=== PATIENT | male | born 1945 | race Caucasian/White ===

== ENCOUNTER → 2021-03-07 10:30 | Outpatient (BNVA) | payer OTHER, SELFPAY | PROVIDERS: Family Provider Nurse Practitioner Family; PCP Nurse Practitioner Family; Visit Provider Internal Medicine Cardiovascular Disease | DX: I35.0 Nonrheumatic aortic (valve) stenosis (principal); Z79.899 Other long term (current) drug therapy | CPT/HCPCS: 80048; 85025; 85610; 87635 ==

== ENCOUNTER 2021-03-13 11:24 | Observation (INO) | payer MEDICARE, OTHER, SELFPAY ==
[2021-03-13] VITALS (25 sets, daily range): BP systolic 86–134; BP diastolic 44–71; PULSE 83–101; RESP 16–27; TEMP 36.6; O2SAT 86–94; BMI 39.4
--- NOTE | 2021-03-13 07:30 | XACV_ITS ---
Ht: 178 cm Wt: 125 kg BSA: 2.54 m2 Gender: Male : 1945 Any Known Allergies: No known allergies Exam Priority: Routine Procedure(s): Procedure Description: Diagnostic procedure Procedure Description: Left Heart Catheterization Procedure Description: Right Heart Catheterization Procedure Description: Left ventriculography Procedure Description: O2 saturation Procedure Description: Coronary Angiography Flori CHILDS; Diagnostic Cath Status: Elective Diagnostic Findings * No disease noted in the Left Main, Left Anterior Descending, Right, or Circumflex coronary arteries. * Coronary angiography shows right dominance. Conclusions 1. No disease noted in the Left Main, Left Anterior Descending, Right, or Circumflex coronary arteries. 2. Pulmonary capillary wedge pressure 28 mmHgPA mean 73 mmHgRV 115/7 mmHgRA 14 mmHgNo reversibility was noted in the PA mean in the reversibility studySignificant step-up noted at the level of PAHigh cardiac output and cardiac index notedFurther assessment with cardiac CT or MRI rule out shunt. Recommendations * Continue current medical management and risk factor modification. * Severe * pulmonary hypertension * mixed * pre and post capillary * , consider * CT * MRI of the heart * to rule out * shunt at the level of PA. Pressures Phase:Rest AO : 98 / 52 ( 67 ) @ 9:50:00 AM 98 / 52 ( 69 ) @ 10:02:00 AM 101 / 58 ( 71 ) @ 10:02:00 AM 99 / 57 ( 70 ) @ 10:02:00 AM 110 / 59 ( 73 ) @ 10:10:00 AM 109 / 56 ( 73 ) @ 10:10:00 AM 109 / 59 ( 74 ) @ 10:10:00 AM LV : 155 / 31 / 26 @ 10:01:00 AM 116 / 12 / 25 @ 10:02:00 AM 139 / 6 / 17 @ 10:08:00 AM 156 / 6 / 21 @ 10:10:00 AM 138 / 6 / 20 @ 10:10:00 AM RV : 115 / 7 / 14 @ 9:41:00 AM PA : 118 / 44 ( 69 ) @ 9:27:00 AM 124 / 45 ( 73 ) @ 9:34:00 AM 122 / 45 ( 71 ) @ 9:37:00 AM 118 / 43 ( 68 ) @ 9:41:00 AM RA : a wave = 19 v wave = 17 mean = 14 @ 9:42:00 AM PCW : a wave = 31 v wave = 31 mean = 28 @ 9:29:00 AM O2 Content Phase:Rest PA : O2 Content O2: 62.6 @ ::00 AM Saturations Phase:Rest AO : 77 @ 10:02:00 AM RA : 51 @ 10:02:00 AM RV : 52 @ 10::00 AM PA : 63 @ 10:02:00 AM Cardiac Output Phase:Rest Aydee : 11 @ 11:21:32 AM Aydee Cardiac Index: 5 @ 11:21:32 AM Flow Phase:Rest Qp : 11 @ 11:21:32 AM Qs : 6 @ 11:21:32 AM Valves Phase:DefaultPhase AV : 22.0 @ 11:21:32 AM AV Mean Gradient: 14.0 @ 11:21:32 AM AV Flow: 978 @ 11:21:32 AM AV Area: 5.9 @ 11:21:32 AM AV Area Index: 2.47 @ 11:21:32 AM Clinical Evaluation EBL: 5mL-10mL Procedural Details Procedure Consent Obtained. Pre-Procedure Time Out. Identified patient by full name and date of as verbalized by the patient/guarantor. Does the consent match the physician's order: Yes. Accurate & Complete Informed Consent: Yes. Inpatient/Outpatient History & Physical on Chart: Yes. If H&P is completed, is and addenduem needed: No; If yes, is the addendum complete: N/A. Visualize and Verify Site with Patient/Guarantor: N/A. Relevant Radiology Images available: N/A. Pre-op teaching completed and patient verbalized understanding. The risks, benefits, and alternatives of sedation and/or procedure were discussed by physician. The patient agrees to continue. Procedure started. Maritza Judd RN will be circulating nurse for this procedure. [facility] Clinical Fraility Score: 3: Managing Well. Terrazzo Roller Indications: Valvular Disease, pre op clearance, SOB. Chest Pain Symptom Assessment: Atypical Angina. Cardiovascular Instability: No. Correct patient, site and procedure confirmed by cath team. PERRLA. 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 Lungs clear x 5 lobes. IV Site on Arrival: 20 gauge in the left anticubital. IV Site on Arrival: 20 gauge in the right anticubital. IV Fluids: 0.9% NaCl at KVO. 0 mL infused prior to cardiac cath rn. right brachial was prepped with chloroprep then draped in the usual sterile fashion. right radial was prepped with chloroprep then draped in the usual sterile fashion. right groin was prepped with chloroprep then draped in the usual sterile fashion. Physician arrived. Equipment: 6F - Radial. Cardiac Cath Pack. ACIST Manifold Kit Model BT 2000. Heparinized Saline (2 units/mL), 1000 mL bag. Baseline sample Acquired. HR: 101 BPM. Physician scrubbed in. Immediate Pre-Procedure Time Out. Correct Patient: Yes; Correct Procedure: Yes; Correct Site: Yes; Correct Patient Position: Yes; Correct Supplies: Yes; Dried Flammable Prep: Yes; Blood Products Available: N/A;. Hand injection through IV catheter in right brachial vein. Wire inserted through IV catheter in right brachial vein. Lidocaine 1% infiltrated to the right brachial. IV catheter removed over wire. O2 started at 4 lpm. Micropuncture kit used to dialate prior to sheath inserted. Oxygen stopped at this time. [place] MON catheter inserted. Oximetry samples were obtained. Normal venous range: 60-85%. Normal arterial range: 95-100%. Pressure measurements obtained. [place] out. Lidocaine 1% infiltrated to the right radial. Arterial access obtained. Oxygen started at 4liters/min via nasal canula. A 5 irish Eleuterio catheter in over wire. Multiple views taken of left coronary artery. Catheter redirected to the RCA. Multiple views taken of right coronary artery. EDP Sample taken: LV 155/31,26; HR: 113 BPM; SpO2: 93%. Pullback taken: LV 116/12,25; AO 98/52(69); Mean: 9mmHg, Peak to Peak: 13mmHg, SEP: 16sec/min; HR: 119 BPM; SpO2: 91%. Catheter removed over the exchange wire. Family updated. A 5 irish Angled Pig catheter in over wire. EDP Sample taken: LV 139/6,17; HR: 76 BPM; SpO2: 92%. LV gram performed in BOLES @ 10 mL/second for a total of 30 mL. EDP Sample taken: LV 156/6,21; HR: 112 BPM; SpO2: 94%. Pullback taken: LV 138/6,20; AO 110/59(73); Mean: 14mmHg, Peak to Peak: 22mmHg, SEP: 11sec/min; HR: 91 BPM; SpO2: 93%. Catheter removed over the exchange wire. Physician scrubbed out. A Manual Compression was successful obtaining hemostatsis at the Right Brachial Vein insertion site. A TR Band was successful obtaining hemostatsis at the Right Radial artery insertion site. TR band placed. Hemostasis obtained. Sheath(s) removed and manual pressure held until hemostasis was achieved. Sterile 4x4 and Op-site applied to the puncture site. No oozing or hematoma noted. Post sheath removal instructions were given and the patient verbalized understanding. Post Procedure: Pulses reassessed and unchanged. PERRLA. 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 No VTE prophylaxis required. Contrast type used: Visipaque 320 mgI/mL, 500 mL bottle. Medication's Wasted: Lidocaine 1% = 14 mL. Medication's Wasted: Heparin = 49.8 mg. Medication's Wasted: Heparin = 1000 units. Medication's Wasted: Other = fentanyl 100 mcg. Total IV fluids: 103 mL. Post-op diagnosis: severe , normal coronaries, severe Pulm HTN pre capillary. Complications: none. Estimated blood loss: 5mL-10mL. Procedure completed. Patient transferred by wheelchair to 1st floor. Vital chart was stopped. Access Site Site: Right Brachial Vein Sheath Size: 6 Fr Hemostasis Method: Manual Compression Hemostasis Success: Successful Site: Right Radial artery Sheath Size: 6 Fr Hemostasis Method: TR Band Hemostasis Success: Successful Procedure Medications Start: 10:00 AM Stop: 10:00 AM Medication: Benadryl Amount: 50 mg Route: I.V. Start: 10:01 AM Stop: 10:01 AM Medication: Versed Amount: 1 mg Route: I.V. Start: 10:11 AM Stop: 10:11 AM Medication: Versed Amount: 1 mg Route: I.V. Start: 10:19 AM Stop: 10:19 AM Medication: Nitrogylcerin Amount: 200 mcg Route: I.A. Start: 10:31 AM Stop: 10:31 AM Medication: Nitrogylcerin Amount: 2 Route: S.L. Start: 10:34 AM Stop: 10:34 AM Medication: Nitrogylcerin Amount: 2 Route: S.L. Start: 10:37 AM Stop: 10:37 AM Medication: Nitrogylcerin Amount: 2 Route: S.L. Start: 10:47 AM Stop: 10:47 AM Medication: Nitrogylcerin Amount: 200 mcg Route: I.A. Start: 10:51 AM Stop: 10:51 AM Medication: Heparin Amount: 5000 units I, the attending physician, have reviewed and verified all procedure medications. Yes, all medications given per verbal order History/Risk Factors Hypertension: Yes Dyslipidemia: No Peripheral Arterial Disease (PAD): No Myocardial Infarction (DE): No Obesity: No Renal Disease: No Tobacco Use: Former Prior Interventions PCI: No CABG: No Valve Surgery: No Report Signatures Finalized by Libertad Ruby MD on 03/26/2021 11:49 PM
--- NOTE | 2021-03-13 09:56 | W.PM.OPSFHP ---
Same Day Surgery H&P Indication for Procedure/HPI DATE OF PROCEDURE: March 13, 2021 CHIEF COMPLAINT/INDICATIONFOR SURGICAL PROCEDURE: Unexplained shortness of breath, moderate aortic stenosis with discrepancy of area, pulmonary hypertension PREOP DIAGNOSIS: Unexplained shortness of breath, prevalve evaluation PLANNED PROCEDRUE: Operation Date: 03/13/21 08:30 Proposed Procedures p Cardiac Catheterization(Right) - Libertad Ruby MD Reason for consult reason: #1 Shortness of breath #2 Severe pulmonary hypertension on the basis of echocardiogram, #3 Moderately enlarged right ventricle #4 Moderate aortic stenosis aortic valve area 0.9 cm care. Peak velocity across aortic valve 2.89 cm2 indexed valve area was 1.1 cm? ejection fraction 55 to 60% normal as per echocardiogram performed in November 2020 at an outside hospital Patient continues to have worsening of shortness of breath despite optimization of medicine. He is scheduled for left and right heart cath to evaluate pulmonary hypertension and aortic stenosis along with any coronary artery disease for possible aortic valve surgery. Medications/Allergies* Home Medications Medication Instructions Recorded Confirmed Type Lactobacillus acidophilus 10 mg PO DAILY 02/07/21 03/10/21 History aspirin 81 mg tablet,delayed 81 mg PO DAILY 02/07/21 03/10/21 History release atenolol 25 mg tablet 25 mg PO DAILY 02/07/21 03/10/21 History cholecalciferol (vitamin D3) 10 25 mcg PO DAILY cap 02/07/21 03/10/21 History mcg (400 unit) capsule furosemide 80 mg tablet 80 mg PO BID 02/07/21 03/10/21 History lycopene 10 mg capsule 20 mg PO DAILY cap 02/07/21 03/10/21 History omega-3 fatty acids 500 mg capsule 500 mg PO BID 02/07/21 03/10/21 History potassium chloride 10 mEq 10 meq PO BID 02/07/21 03/10/21 History tablet,extended release vitamin E 200 unit capsule 200 unit PO DAILY 02/07/21 03/10/21 History zinc 50 mg tablet 50 mg PO DAILY 02/07/21 03/10/21 History Allergies/Adverse Reactions Allergy/AdvReac Type Severity Reaction Status Date / Time No Known Allergies Allergy Verified 03/10/21 09:19 Pertinent History/Comorbid Conditions* Medical History (Updated 02/11/21 @ 15:57 by Libertad Ruby MD) Aortic stenosis Congestive heart failure with right ventricular systolic dysfunction Pulmonary hypertension, moderate to severe Family History (Updated 02/07/21 @ 14:51 by Karrie Lewis RN) Hypertension Social History Smoking and tobacco status: former smoker Pertinent Exam Findings alert, oriented x 3, clear to auscultation bilaterally and regular rate & rhythm Conscious Sedation Assessment PATIENT ASSESSED PRIOR TO SEDATION, WITH NO CHANGE NOTED: Yes AIRWAY EVAL/ANESTHESIA PLAN: ASA II, Risks, benefits & alternatives of sedation and/or procedure discussed and Patient agrees to continue as planned Recommendations Surgery/Procedure today Coding Level of Care Code Acute Creative Writing Teacher for Dilma Black
--- NOTE | 2021-03-13 14:00 | PC.NURSE ---
TR band off after reducing air in band every 15 minutes for a total of 15ml removed. Small circular bruise above puncture site 2x2 dressing with opsite to cover placed over punture wound. Patient instructed to keep right wrist dry and drsg on for 48 hrs. Patient instructed in lifting and use restrictions post heart cath.
--- NOTE | 2021-03-13 16:40 | PC.SOCIAL ---
Home O2 Eval Home O2 eval completed; patient reports that he already has an Inogen from [facility], but only wears at night. Called [facility], they report order is for 2LPM continuous. Updated patient. [facility] at [facility] reports that they will bring portable tank over for patient to use on ride home.
== END 2021-03-13 16:45 | disposition home or self-care (01) ==
LOC: CSU 11:24
PROVIDERS: Admitting Provider Internal Medicine Cardiovascular Disease; PCP Nurse Practitioner Family; Visit Provider Internal Medicine Cardiovascular Disease
DX: R06.02 Shortness of breath (principal); I35.0 Nonrheumatic aortic (valve) stenosis; I27.20 Pulmonary hypertension, unspecified; I11.0 Hypertensive heart disease with heart failure; I50.22 Chronic systolic (congestive) heart failure; Z79.82 Long term (current) use of aspirin
CPT/HCPCS: 36415; 93453; C1751; C1769; C1887; C1894; G0378; J1200; J1644; J2250; J3010; J3490; J7030; Q9967

== ENCOUNTER → 2021-03-20 11:55 | Outpatient (BNVA) | payer MEDICARE, OTHER, SELFPAY | PROVIDERS: PCP Nurse Practitioner Family; Visit Provider Nurse Practitioner Family | DX: I35.0 Nonrheumatic aortic (valve) stenosis (principal) | CPT/HCPCS: 80048 ==